=== PATIENT | male | born 1975 | race Caucasian/White ===

== ENCOUNTER → 2021-10-14 | Outpatient (CLI) | payer BC ==
[2021-10-14 14:35] LABS: URINE WBC 0 /hpf (0-3)
[2021-10-14 14:40] LABS: BASO # 0.07 K/mm3 (0.02-0.10); EOS # 0.17 K/mm3 (0.04-0.40); EOS % 1.8 % (0.0-4.0); HEMATOCRIT 41.9 % (42.0-52.0); LYMPH# 2.51 K/mm3 (1.50-4.00); MEAN CELL VOLUME 86 fl (78-100); MEAN CORPUSCULAR HEMOGLOBIN 29 pg (27-31); MEAN CORPUSCULAR HGB CONC 33 g/dL (33-37); MEAN PLATELET VOLUME 10.1 fl (7.4-10.4); MONO # 0.67 K/mm3 (0.20-0.80); NEU # 6.27 K/mm3 (1.40-6.50); PLATELET COUNT 294 K/mm3 (130-400); RED BLOOD COUNT 4.86 M/mm3 (4.20-5.60); RED CELL DISTRIBUTION WIDTH 12.8 % (11.5-14.5); WHITE BLOOD COUNT 9.7 K/mm3 (4.8-10.8)
[2021-10-14 14:58] LABS: POTASSIUM 3.9 mmol/L (3.5-5.1)
[2021-10-14 14:59] LABS: ALBUMIN 4.4 g/dL (3.5-5.0)
[2021-10-14 15:00] LABS: CALCIUM 9.2 mg/dL (8.3-10.5)
[2021-10-14 15:01] LABS: TOTAL PROTEIN 7.6 g/dL (6.4-8.3)
[2021-10-14 15:03] LABS: TOTAL BILIRUBIN 0.5 mg/dL (0.2-1.2)
[2021-10-14 16:14] LABS: URINE APPEARANCE CLEAR; URINE BILIRUBIN NEGATIVE (NEGATIVE); URINE BLOOD NEGATIVE (NEGATIVE); URINE COLOR YELLOW; URINE KETONE NEGATIVE (NEGATIVE); URINE LEUKOCYTE ESTERASE NEGATIVE (NEGATIVE); URINE MUCUS PRESENT (NOT PRESENT); URINE NITRATE NEGATIVE (NEGATIVE); URINE PROTEIN(semi-quant) 1+ (NEGATIVE); URINE UROBILINOGEN NORMAL (NORMAL)
== END ==
LOC: LAB 14:25
PROVIDERS: Physician Assistant
DX: Z13.220 Encounter for screening for lipoid disorders (principal); Z13.29 Encounter for screening for other suspected endocrine disorder; K90.9 Intestinal malabsorption, unspecified; I10 Essential (primary) hypertension; E11.9 Type 2 diabetes mellitus without complications; Z76.89 Persons encountering health services in other specified circumstances

== ENCOUNTER → 2023-11-15 | Outpatient (CLI) | payer OTHER | LOC: LAB 16:54 | DX: E11.9 Type 2 diabetes mellitus without complications (principal) ==

== ENCOUNTER → 2024-04-06 | Outpatient (CLI) | payer OTHER | LOC: LAB 13:08 | DX: E11.9 Type 2 diabetes mellitus without complications (principal) ==